=== PATIENT | female | born 1960 | race Caucasian/White ===

== ENCOUNTER 2019-02-23 05:36 | Day surgery (SDC) | payer BC ==
[2019-02-23] MEDS ORDERED: Midazolam 1 MG/ML 2 ML SDV IV ONE ×3 (05:37→06:25)
[2019-02-23] MEDS ORDERED: fentaNYL 100 MCG/2 ML SDV IV ONE ×3 (05:37→06:24)
[2019-02-23] MEDS ORDERED: Dextrose 5%-0.45% NaCl 1,000 ML IV SCH (06:02)
[2019-02-23] MEDS ORDERED: fentaNYL 100 MCG/2 ML SDV ONE (06:12)
[2019-02-23] MEDS ORDERED: Midazolam 1 MG/ML 2 ML SDV ONE (06:12)
--- NOTE | 2019-02-23 08:42 | OR ---
DATE: 02/23/2019 PROCEDURE: Esophagogastroduodenoscopy and multiple pinch biopsies. INSTRUMENT USED: [id number]-HQ190 Olympus video panendoscope. PREMEDICATIONS: No oral or topical anesthesia used. Fentanyl 100 mcg intravenous, Versed 2 mg intravenous. The procedure was done under pulse oximetry, BP recording, and technology resource teacher. INDICATION: The patient with persistent cough as well as dyspepsia and abdominal bloating, unexplained and not responsive to medical measures, has been on PPI. Esophagogastroduodenoscopy is performed for detection of any active erosive lesions, Zendejas esophagus and/or malignancy also under consideration, H. pylori status to be determined, small bowel biopsies to be obtained for celiac disease if indicated, endoscopic hemostasis therapy if needed. The scope was passed with ease. Adequate visualization of the esophagus was made from proximal to distal areas. No upper esophageal lesions identified. No distal esophageal stricture. No uphill or downhill esophageal varices. No Dennise-Christopher tear. No evidence of erosive esophagitis by Jbphh criteria. No esophageal polyp or tumor mass identified. Z-line was seen at around 35 cm distal to the oral verge. Sliding hiatal hernia was noted. No esophageal polyp or tumor mass identified. Four-quadrant biopsies were taken from the area of Z- line at 35 cm distal to the oral verge and sent for any histopathologic evidence of intestinal metaplasia. No proximal gastric varices noted. Gastric fundus examination by retroflexion showed no polypoid lesions. No gastric ulcer, malignant mass, or vascular ectasia identified. Duodenal bulb showed no ulcer. Visualized second part of the duodenum was unremarkable. Multiple pinch biopsies, 4 in number, were taken from different areas of the second part of the duodenum and tissues were also obtained from the duodenal bulb at 9 and 12 o'clock positions and sent for any histopathologic evidence of celiac disease. Multiple pinch biopsies were also taken from the gastric antrum and proximal body and sent for PyloriTek test for H. pylori and histopathology. No bleeding was noted from any of the visualized areas at the completion of examination. Photographs were taken of the duodenal bulb, gastric antrum, fundus, and distal esophagus. IMPRESSION: Sliding hiatal hernia. The patient tolerated the procedure well. [facility] /[id number]
== END 2019-02-23 08:39 | disposition home or self-care (01) ==
LOC: DL.ENDO 05:36
PROVIDERS: ATTEND Internal Medicine Gastroenterology
DX: R10.13 Epigastric pain (principal); R14.0 Abdominal distension (gaseous); K22.8 Other specified diseases of esophagus; R05 Cough; K44.9 Diaphragmatic hernia without obstruction or gangrene; F41.1 Generalized anxiety disorder; F32.9 Major depressive disorder, single episode, unspecified
CPT/HCPCS: 43239; 87077; J2250; J3010; J7042